=== PATIENT | female | born 1990 | race Hispanic/Latino ===

== ENCOUNTER 2017-04-09 12:50 | Observation (INO) | payer OTHER ==
[2017-04-09 13:44] LABS: APPEARANCE,URINE Clear (CLEAR); BILIRUBIN,URINE Negative (NEGATIVE); COLOR,URINE Yellow (YELLOW); GLUCOSE, URINE (UA) Negative (NEGATIVE); KETONES,URINE Negative (NEGATIVE); LEUKOCYTE ESTERASE ,URINE Negative (NEGATIVE); NITRATE,URINE Negative (NEGATIVE); OCCULT BLOOD,URINE Negative (NEGATIVE); PH,URINE 7.5 (5.0-8.0); PROTEIN,URINE Negative (NEGATIVE); UROBILINOGEN,URINE 0.2 mg/dL (0.2-1.0)
[2017-04-09] MEDS ORDERED: TERBUTALINE SULFATE VIAL 1MG/ML SQ SCH (14:45)
== END 2017-04-09 16:07 | disposition home or self-care (01) ==
LOC: LDH 12:50
PROVIDERS: ADMIT Obstetrics & Gynecology; ATTEND Obstetrics & Gynecology
DX: O62.9 Abnormality of forces of labor, unspecified (principal); O60.03 Preterm labor without delivery, third trimester; Z3A.37 37 weeks gestation of pregnancy
CPT/HCPCS: 81003; 96372; G0378 ×4; J3105; J7120; 96360

== ENCOUNTER 2017-04-23 11:00 | Inpatient (IN) | payer OTHER ==
[~2017-04-23] VITALS: Ht 154.9 cm; Wt 77.1 kg
[2017-04-23 13:41] LABS: HEMATOCRIT 34.2 % (36-48); MEAN CORPUSCULAR HEMOGLOBIN 29.5 pg (27.0-33.0); MEAN CORPUSCULAR HGB CONC 35.9 g/dL (32.0-36.0); MEAN CORPUSCULAR VOLUME 82.3 fL (79-99); PLATELET COUNT (AUTO) 273 K/uL (130-400); RED BLOOD CELL COUNT(AUTO) 4.16 MIL/uL (4.00-5.50); RED CELL DISTRIBUTION WIDTH 13.9 % (11.0-15.5); WHITE BLOOD COUNT (AUTO) 9.7 K/uL (4.8-10.8)
[2017-04-24] VITALS (16 sets, daily range): BP systolic 95–121; BP diastolic 43–70
[2017-04-24] MEDS ORDERED: LACTATED RINGERS 1000ML 1,000 ML IV SCH (05:45)
[2017-04-24] MEDS ORDERED: CEFAZOLIN SODIUM 1 GM VIAL IVP PRN (05:45)
[2017-04-24] MEDS ORDERED: LACTATED RINGERS 1000ML 1,000 ML IV ONE (06:05)
[2017-04-24] MEDS ORDERED: CEFAZOLIN SODIUM 1 GM VIAL ONE (06:06)
[2017-04-24] MEDS ORDERED: FENTANYL CITRATE PF 50 MCG/1 ML 2ML VIAL ONE (06:47)
[2017-04-24] MEDS ORDERED: DURAMORPH PF1 MG/ML 10ML AMP IV ONE (06:47)
[2017-04-24] MEDS ORDERED: OXYTOCIN 10 UNIT/1ML 10ML VIAL ONE (07:31)
[2017-04-24] MEDS ORDERED: PHENYLEPHRINE HCL 10 MG/ML 1ML VIAL IV ONE (07:31)
[2017-04-24] MEDS ORDERED: SODIUM CHLORIDE 0.9% 10 ML VIAL ONE (07:31)
[2017-04-24] MEDS ORDERED: ONDANSETRON HCL MDV 20ML 2 MG/ML VIAL ONE (07:36)
[2017-04-24] MEDS ORDERED: CALDOLOR 800MG+NS 250ML 250 ML IV ONE (07:37)
[2017-04-24] MEDS ORDERED: NALOXONE HCL 0.4 MG/1 ML ML IVP PRN (09:00)
[2017-04-24] MEDS ORDERED: ONDANSETRON HCL 4 MG/2 ML VIAL IVP PRN ×2 (09:00)
[2017-04-24] MEDS ORDERED: MORPHINE SULFATE 2 MG/ML 1ML SYG IVP PRN (09:00)
[2017-04-24] MEDS ORDERED: EPHEDRINE SULFATE 50 MG/ML AMPULE IVP PRN (09:00)
[2017-04-24] MEDS ORDERED: PROMETHAZINE HCL 25 MG/ML 1ML AMPULE IM PRN ×2 (09:00→09:30)
[2017-04-24] MEDS ORDERED: DiphenhydrAMINE HCL 50 MG/ML VIAL IVP PRN (09:00)
[2017-04-24] MEDS ORDERED: METOCLOPRAMIDE 10 MG/2 ML VIAL IVP PRN (09:00)
[2017-04-24] MEDS ORDERED: ONDANSETRON HCL 4 MG/2 ML 8 MG in SODIUM CHLORIDE 0.9% 50 ML IVP NR (09:00)
[2017-04-24] MEDS ORDERED: CALDOLOR 800MG+NS 250ML 250 ML IV SCH (09:00)
[2017-04-24] MEDS ORDERED: HYDROCODONE/ACETAMINOPHEN 5/325 MG TAB PO PRN ×2 (09:00)
[2017-04-24] MEDS ORDERED: DOCO200C5 PO (09:13)
[2017-04-24] MEDS ORDERED: OXYTOCIN-LR 20 UNITS/1000 ML 1,000 ML IV PRN (09:26)
[2017-04-24] MEDS ORDERED: SODIUM CHLORIDE 0.9% 10 ML VIAL IVP PRN (09:30)
[2017-04-24] MEDS ORDERED: MEPERIDINE-PF 75 MG/ML SYG IM PRN (09:30)
[2017-04-24 09:48] LABS: HEPATITIS Bs ANTIGEN SCREEN P Negative (Negative)
[2017-04-24] MEDS ORDERED: OXYTOCIN 10 USP UNITS/ML ONE (14:23)
[2017-04-24] MEDS: CALDOLOR 800MG+NS 250ML 250 ML IV SCH (16:52)
[2017-04-24] MEDS: DEXTROSE 5 %-0.45 % NACL 1,000 ML IV PRN (21:08)
[2017-04-25] MEDS: CALDOLOR 800MG+NS 250ML 250 ML IV SCH (00:24)
[2017-04-25 03:43] VITALS: BP 106/72
[2017-04-25 05:29] LABS: HEMATOCRIT 27.3 % (36-48); MEAN CORPUSCULAR HEMOGLOBIN 29.8 pg (27.0-33.0); MEAN CORPUSCULAR HGB CONC 35.9 g/dL (32.0-36.0); MEAN CORPUSCULAR VOLUME 83.1 fL (79-99); PLATELET COUNT (AUTO) 197 K/uL (130-400); RED BLOOD CELL COUNT(AUTO) 3.29 MIL/uL (4.00-5.50); RED CELL DISTRIBUTION WIDTH 13.7 % (11.0-15.5); WHITE BLOOD COUNT (AUTO) 9.5 K/uL (4.8-10.8)
[2017-04-25] MEDS: DEXTROSE 5 %-0.45 % NACL 1,000 ML IV PRN (06:18)
[2017-04-25 07:56] VITALS: BP 112/71
[2017-04-25] MEDS ORDERED: DIPHENHYDRAMINE HCL 25 MG CAPSULE PO PRN (08:30)
[2017-04-25] MEDS ORDERED: ACETAMINOPHEN EXTRA STRENGTH 500 MG TABLET PO PRN (08:30)
[2017-04-25] MEDS ORDERED: HYDROCODONE/ACETAMINOPHEN 5/325 MG TAB PO PRN (08:30)
[2017-04-25] MEDS ORDERED: BISACODYL 10 MG SUPP.RECT RC PRN (08:30)
[2017-04-25] MEDS ORDERED: LANOLIN 30GM OINTMENT TP PRN (08:30)
[2017-04-25] MEDS: SIMETHICONE 80 MG TAB.CHEW PO PRN ×4 (08:50→21:09)
[2017-04-25] MEDS: DOCUSATE SODIUM 100 MG CAP PO SCH ×2 (08:50→21:09)
[2017-04-25] MEDS: IBUPROFEN 600 MG TABLET PO PRN ×3 (08:51→22:11)
[2017-04-25] MEDS: DIPH,PERTUSS(ACELL),TET VAC/PF 0.5 ML VIAL IM SCH (08:51)
[2017-04-25] MEDS: MEASLES/MUMPS/RUBELLA VACCINE, LIVE 0.5 ML/VIAL SQ SCH (08:52)
[2017-04-25] MEDS: FLU VACC QS2017-18 36MOS UP/PF 60 MCG/0.5 ML ML IM SCH (08:54)
[2017-04-25] MEDS: ACETAMINOPHEN-CODEINE 300/30MG TAB PO PRN ×2 (11:45→18:04)
[2017-04-25 11:54] VITALS: BP 114/77
[2017-04-25 15:54] VITALS: BP 120/73
[2017-04-25 19:29] VITALS: BP 115/64
[2017-04-25 23:34] VITALS: BP 112/63
[2017-04-26 03:36] VITALS: BP 101/57
[2017-04-26] MEDS: FLU VACC QS2017-18 36MOS UP/PF 60 MCG/0.5 ML ML IM SCH (06:30)
[2017-04-26] MEDS: IBUPROFEN 600 MG TABLET PO PRN (07:43)
[2017-04-26 07:52] VITALS: BP 119/62
[2017-04-26] MEDS: DIPH,PERTUSS(ACELL),TET VAC/PF 0.5 ML VIAL IM SCH (08:30)
[2017-04-26] MEDS: MEASLES/MUMPS/RUBELLA VACCINE, LIVE 0.5 ML/VIAL SQ SCH (08:30)
[2017-04-26] MEDS: SIMETHICONE 80 MG TAB.CHEW PO PRN (09:01)
[2017-04-26] MEDS: DOCUSATE SODIUM 100 MG CAP PO SCH (09:01)
[2017-04-26 11:55] VITALS: BP 114/71
== END 2017-04-26 14:35 | disposition home or self-care (01) | DRG 765 ==
LOC: EDSTATUS 11:00 → LDH 04-24 05:35 → WSH 04-24 08:26
PROVIDERS: ADMIT Obstetrics & Gynecology; ATTEND Obstetrics & Gynecology
PROC: 10D00Z1 Extraction of Products of Conception, Low, Open Approach (ICD-10-PCS; principal; 2017-04-24 08:05)
PROC: 3E0234Z Introduction of Serum, Toxoid and Vaccine into Muscle, Percutaneous Approach (ICD-10-PCS; 2017-04-25)
PROC: 3E0134Z Introduction of Serum, Toxoid and Vaccine into Subcutaneous Tissue, Percutaneous Approach (ICD-10-PCS; 2017-04-25)
PROC: 3E0234Z Introduction of Serum, Toxoid and Vaccine into Muscle, Percutaneous Approach (ICD-10-PCS; 2017-04-25)
PROC: 3E0234Z Introduction of Serum, Toxoid and Vaccine into Muscle, Percutaneous Approach (ICD-10-PCS; 2017-04-26)
DX: O34.211 Maternal care for low transverse scar from previous cesarean delivery (principal); D62 Acute posthemorrhagic anemia; Z37.0 Single live birth; O99.824 Streptococcus B carrier state complicating childbirth; Z3A.39 39 weeks gestation of pregnancy; O99.02 Anemia complicating childbirth; Z23 Encounter for immunization
CPT/HCPCS: 36415; 59510; 85027; 86592; 86850; 86900; 86901; 87340; 90707; 90715; A4344; A4450; A4606; J0690; J1741; J2274; J2370; J2405; J2590; J3010; J7120; Q2038